=== PATIENT | female | born 1960 | race Caucasian/White ===

== ENCOUNTER 2022-10-26 12:42 | Emergency (ER) | payer MEDICARE ==
[~2022-10-26] VITALS: Ht 157.5 cm; Wt 81.8 kg
[2022-10-26 13:03] VITALS: BP 140/80
[2022-10-26 13:15] VITALS: BP 152/91
[2022-10-26] MEDS ORDERED: MAGNESIUM 400 M1 TAB (13:18)
[2022-10-26] MEDS ORDERED: LOSARTAN POTASS50 MG PO (13:19)
[2022-10-26] MEDS ORDERED: FLOXIN OTIC0.3 % AU ×3 (13:28→13:34)
[2022-10-26] MEDS ORDERED: AMOXICILLIN875 MG PO ×3 (13:28→13:34)
[2022-10-26 13:30] VITALS: BP 134/90
[2022-10-26 13:45] VITALS: BP 123/76
[2022-10-26 13:48] VITALS: BP 123/76
== END 2022-10-26 13:48 | disposition home or self-care (01) ==
LOC: ED 12:42
DX: H60.92 Unspecified otitis externa, left ear (principal); H66.92 Otitis media, unspecified, left ear